=== PATIENT | male | born 1985 | race Caucasian/White ===

== ENCOUNTER 2024-10-31 20:29 | Emergency (ER) | payer OTHER, SELFPAY ==
[2024-10-31 20:32] VITALS: BP 126/78; PULSE 73; RESP 15; TEMP 36.2; O2SAT 100
--- NOTE | 2024-10-31 22:04 | ED_ITS ---
HPI - General Adult General Chief complaint: Allergic Reaction Stated complaint: allergic reaction to seafood Time Seen by Provider: 10/31/24 21:23 History of Present Illness HPI narrative: Patient is a 39-year-old gentleman presents emergency department with chief complaint of facial numbness and facial paralysis patient reports that he started having numbness in the right side of his face and reports that the face appears to be moving differently. Patient reports no swelling reports this started after he ate imitation crab. Related Data Allergies Allergy/AdvReac Type Severity Reaction Status Date / Time shellfish derived Allergy Mild Swelling Verified 10/31/24 21:38 Review of Systems Review of Systems: A 10 system review of systems was completed on the patient and is negative except for what is stated in the HPI. Nursing and ancillary documentation was reviewed. Exam Narrative: GENERAL: Well-appearing, well-nourished, and in no acute distress. HEAD: Normocephalic, atraumatic. EYES: PERRLA and EOMI. ENT: Nares clear, no rhinorrhea or epistaxis. Mucous membranes moist. Right- sided facial paralysis involving forehead NECK: Supple. CHEST: Clear to auscultation. No respiratory distress. HEART: Regular rate and rhythm. No murmur heard. Normal peripheral pulses. ABDOMEN: Soft, nontender, nondistended, normal active bowel sounds. EXTREMITIES: Normal range of motion. No edema. SKIN: Warm, dry, no rash. NEURO: No focal deficits. Alert and oriented x3. PSYCH: Normal mood and affect. Course Vital Signs Vital signs: Vital Signs Temperature 36.2 C L 10/31/24 20:32 Pulse Rate 73 10/31/24 20:32 Respiratory Rate 15 10/31/24 20:32 Blood Pressure 126/78 10/31/24 20:32 Pulse Oximetry 100 10/31/24 20:32 Oxygen Delivery Room Air 10/31/24 20:32 Temperature 36.2 C L 10/31/24 20:32 Pulse Rate 73 10/31/24 20:32 Respiratory Rate 15 10/31/24 20:32 Blood Pressure 126/78 10/31/24 20:32 Pulse Oximetry 100 10/31/24 20:32 Oxygen Delivery Room Air 10/31/24 20:32 Medical Decision Making [facility] Narrative Medical decision making narrative: The patient has exam consistent with Vasquez's palsy. The patient was started on steroids and will also be started on antivirals. Vital Signs Vital Signs: Vital Signs Temperature 36.2 C L 10/31/24 20:32 Pulse Rate 73 10/31/24 20:32 Respiratory Rate 15 10/31/24 20:32 Blood Pressure 126/78 10/31/24 20:32 Pulse Oximetry 100 10/31/24 20:32 Oxygen Delivery Room Air 10/31/24 20:32 Temperature 36.2 C L 10/31/24 20:32 Pulse Rate 73 10/31/24 20:32 Respiratory Rate 15 10/31/24 20:32 Blood Pressure 126/78 10/31/24 20:32 Pulse Oximetry 100 10/31/24 20:32 Oxygen Delivery Room Air 10/31/24 20:32 Discharge Plan Discharge Clinical Impression: Vasquez's palsy Patient Disposition: Home Condition: Stable Instructions: Antibiotic Form, Vasquez Palsy (ED) Patient Language: Kiswahili Prescriptions: New prednisone 20 mg tablet 80 mg PO DAILY 5 Days Qty: 20 0RF valacyclovir 1 gram tablet 1,000 mg PO Q8H 7 Days Qty: 21 0RF Follow-up/Referrals: PHYSICIAN,SOCIOCULTURAL ANTHROPOLOGY PROFESSOR [Primary Care Provider] - Arnav Mackey MD [Physician] - Time of Disposition: 22:10
--- NOTE | 2024-10-31 22:19 | PC.NURSE ---
pharmacy called at this time for valcyclovir spoke with susana who states that he will send the medication down
[2024-10-31] MEDS: valACYclovir HCL 500 MG TABLET 1000 MG PO (22:27)
[2024-10-31] MEDS: predniSONE 20 MG TABLET 80 MG PO (22:27)
[2024-10-31 22:52] VITALS: BP 135/74; PULSE 78; RESP 18; TEMP 36.8; O2SAT 98
== END 2024-10-31 22:56 | disposition home or self-care (01) ==
PROVIDERS: Emergency Provider Emergency Medicine
DX: G51.0 Bell's palsy (principal)
CPT/HCPCS: 99283; A9270; J7512